=== PATIENT | female | born 1945 | race Two or more races ===

== ENCOUNTER 2020-06-16 11:53 | Emergency (ER) | payer OTHER ==
[~2020-06-16] VITALS: Ht 149.9 cm; Wt 47.6 kg
[2020-06-16] MEDS ORDERED: ATORVASTATIN CA80 MG PO (12:34)
[2020-06-16] MEDS ORDERED: ALENDRONAT70 MG/75 M PO (12:34)
[2020-06-16] MEDS ORDERED: IRBESARTAN75 MG PO (12:35)
[2020-06-16] MEDS ORDERED: PEPCID AC20 MG PO (12:35)
[2020-06-16] MEDS ORDERED: VITAMIN C500 M6 PO (12:36)
[2020-06-16] MEDS ORDERED: DERMACINRX5000 UNIT PO (12:36)
== END 2020-06-16 14:12 | disposition home or self-care (01) ==
LOC: ER 11:53
DX: N81.4 Uterovaginal prolapse, unspecified (principal)